=== PATIENT | male | born 1975 | race Two or more races ===

== ENCOUNTER 2016-10-30 16:59 | Emergency (ER) | payer SELFPAY ==
[~2016-10-30] VITALS: Ht 172.7 cm; Wt 77.1 kg
[~2016-10-30 16:59] MED LIST: MOBIC PO; NORCO 7.5-3251 EACH PO; SKELAXIN PO; TYL325 PO; ZOFRAN PO
== END 2016-10-30 18:39 | disposition home or self-care (01) ==
LOC: CED 16:59 → CFTX 16:59 → CED 17:44 → CFTX 18:39
DX: L02.413 Cutaneous abscess of right upper limb (principal); F17.210 Nicotine dependence, cigarettes, uncomplicated; Z90.49 Acquired absence of other specified parts of digestive tract
CPT/HCPCS: 99282